=== PATIENT | male | born 1955 | race Caucasian/White ===

== ENCOUNTER 2023-02-21 12:13 | Inpatient (IN) | payer MEDICARE ==
[2023-02-21 12:54] LABS: #Neutrophils 8.1 thou/uL (1.40-6.50); %Basophils 0.4 % (0.0-1.0); %Eosinophils 0.3 % (0.0-10.0); %Lymphocytes 16.8 % (21.0-51.0); %Monocytes 8.6 % (0.0-10.0); %Neutrophils 72.6 % (42.0-75.0); Hematocrit 35.6 % (42.0-52.0); Mean Corpuscular HGB CONC 36.5 g/dL (32.0-36.0); Mean Corpuscular Hemoglobin 33.9 pg (27.0-31.0); Mean Corpuscular Volume 92.7 fl (78.0-98.0); Mean Platelet Volume 9.9 fL (7.4-10.4); Platelet Count 566 10x3/uL (130-400); RBC Distribution Width 12.4 % (11.5-14.5); Red Blood Cell (RBC) Count 3.84 mill/uL (4.70-6.10); White Blood Cell (WBC) Count 11.1 10x3/uL (4.8-10.8)
[2023-02-21] MEDS ORDERED: Sodium Chloride 0.9% 100 ML ONE (13:24)
[2023-02-21] MEDS ORDERED: cefTRIAXone (ROCEPHIN) 1 GM VIAL ONE (13:24)
[2023-02-21 13:47] LABS: ALT (SGPT) 72 U/L (8-55); AST (SGOT) 153 U/L (5-34); Albumin 3.4 g/dL (3.4-4.8); Alkaline Phosphatase 146 U/L (40-110); Anion Gap 22 mmol/L (10-20); BUN (Urea Nitrogen) 13 mg/dL (8.4-25.7); Bilirubin, Total 8.1 mg/dL (0.2-1.2); Calc. Creatinine Clearance 0 mL/min (70-130); Calcium 8.4 mg/dL (7.8-10.44); Carbon Dioxide 33 mmol/L (23-31); Chloride 80 mmol/L (98-107); Estimated GFR 98; Globulin 3.7 g/dL (2.4-3.5); Glucose 125 mg/dL (80-115); Potassium 3.3 mmol/L (3.5-5.1); Protein, Total 7.1 g/dL (5.8-8.1); Sodium 132 mmol/L (136-145)
[2023-02-21] MEDS ORDERED: Iopamidol-370 76% 500 ML MDV (1 ML CHARGE) ONE (14:06)
[2023-02-21] MEDS ORDERED: Multivitamins, Adult 10 ML, Thiamine HCl 100 MG, Folic Acid 1 MG in Dextrose 5 %-0.45 %... IV SCH (16:15)
[2023-02-21] MEDS ORDERED: Thiamine HCl 200 MG/2 ML VIAL SLOW IVP SCH (16:15)
[2023-02-21] MEDS ORDERED: Folic Acid 1 MG, Multivitamins, Adult 10 ML in Dextrose 5 %-0.45 % NaCl 1,000 ML IV SCH (16:15)
[2023-02-21] MEDS ORDERED: Lorazepam 2 MG/ML VIAL IM PRN (16:29)
[2023-02-21] MEDS ORDERED: Lorazepam 1 MG TAB PO PRN (16:29)
[2023-02-21] MEDS ORDERED: Pantoprazole 40 MG VIAL IVP SCH (16:30)
[2023-02-21] MEDS ORDERED: Electrolyte Replacement Protocol 1 EACH FS SCH (16:30)
[2023-02-21] MEDS ORDERED: Ondansetron PF 4 MG/2 ML Vial IVP PRN (16:31)
[2023-02-21 16:39] LABS: Lactic Acid 2.4 mmol/L (0.5-2.2)
[2023-02-21] MEDS ORDERED: Potassium Bicarbonate/Cit Ac 20 MEQ TAB PO SCH (16:45)
[2023-02-21] MEDS ORDERED: Morphine 2 MG/ML VIAL ONE (16:54)
[2023-02-21] MEDS ORDERED: Ondansetron PF 4 MG/2 ML Vial ONE (16:54)
[2023-02-21 17:05] LABS: INR-International Normal Ratio 1.1; Prothrombin Time 14.8 sec (12.0-14.7)
[2023-02-21 17:11] LABS: Bilirubin Large (Negative); Blood, Urine Negative (Negative); Glucose, Urine (Dipstick) Negative (Negative); Ketone, Urine Negative (Negative); Leukocyte Negative (Negative); Nitrite Positive (Negative); Protein, Urine (Dipstick) 30 mg/dL (Neg-Trace); Urobilinogen > or = 8.0 mg/dL (Less than 2); pH, Urine 7.5 (5.0-9.0)
[2023-02-21 17:21] LABS: Clarity Clear (Clear); Specific Gravity, Urine Greater than 1.060 (1.002-1.036)
[2023-02-21 17:22] LABS: CAUTI Indications for Culture Alt mental st,lethar; RBC/HPF None Seen HPF (0-3); Squamous Epithelial 0-3 HPF (0-3); WBC/HPF 0-3 HPF (0-3)
[2023-02-21 17:23] LABS: Bacteria/HPF Rare-Few HPF (None Seen)
[2023-02-21 17:24] LABS: Urine Culture Reflex No No
[2023-02-21] MEDS: Sodium Chloride 0.9% 1,000 ML IV SCH (19:16)
[2023-02-21 20:18] VITALS: BMI 23.3
[2023-02-21] MEDS: Morphine 2 MG/ML VIAL SLOW IVP PRN (20:32)
[2023-02-22] MEDS: Sodium Chloride 0.9% 1,000 ML IV SCH ×3 (04:20→19:25)
[2023-02-22] MEDS: Morphine 2 MG/ML VIAL SLOW IVP PRN ×5 (05:19→23:57)
[2023-02-22 07:03] LABS: INR-International Normal Ratio 1.2; Prothrombin Time 15.2 sec (12.0-14.7)
[2023-02-22 07:27] LABS: ALT (SGPT) 47 U/L (8-55); AST (SGOT) 106 U/L (5-34); Albumin 2.9 g/dL (3.4-4.8); Alkaline Phosphatase 109 U/L (40-110); Anion Gap 11 mmol/L (10-20); BUN (Urea Nitrogen) 11 mg/dL (8.4-25.7); Bilirubin, Total 5.7 mg/dL (0.2-1.2); Calc. Creatinine Clearance 133 mL/min (70-130); Calcium 7.8 mg/dL (7.8-10.44); Carbon Dioxide 36 mmol/L (23-31); Chloride 88 mmol/L (98-107); Estimated GFR 104; Glucose 109 mg/dL (80-115); Protein, Total 5.9 g/dL (5.8-8.1); Sodium 132 mmol/L (136-145)
[2023-02-22 07:33] LABS: Potassium 2.5 mmol/L (3.5-5.1)
[2023-02-22 07:48] LABS: #Eosinphils 0.1 thou/uL (0.0-0.7); #Monocytes 0.7 thou/uL (0.11-0.59); #Neutrophils 5.4 thou/uL (1.40-6.50); %Basophils 0.5 % (0.0-1.0); %Eosinophils 0.7 % (0.0-10.0); %Lymphocytes 20.6 % (21.0-51.0); %Monocytes 8.3 % (0.0-10.0); %Neutrophils 65.5 % (42.0-75.0); Mean Corpuscular HGB CONC 34.8 g/dL (32.0-36.0); Mean Corpuscular Hemoglobin 33.2 pg (27.0-31.0); Mean Corpuscular Volume 95.4 fl (78.0-98.0); Mean Platelet Volume 9.4 fL (7.4-10.4); RBC Distribution Width 12.5 % (11.5-14.5); Red Blood Cell (RBC) Count 2.83 mill/uL (4.70-6.10); White Blood Cell (WBC) Count 8.3 10x3/uL (4.8-10.8)
[2023-02-22] MEDS: Folic Acid 1 MG TAB PO SCH (08:08)
[2023-02-22] MEDS: Thiamine HCl 200 MG/2 ML VIAL SLOW IVP SCH (08:08)
[2023-02-22] MEDS: Multivit, Therapeutic 1 TAB PO SCH (08:08)
[2023-02-22] MEDS: Pantoprazole 40 MG VIAL IVP SCH (08:09)
[2023-02-22 08:10] LABS: Hemoglobin 9.4 g/dL (14.0-18.0)
[2023-02-22 08:11] LABS: Platelet Count 418 10x3/uL (130-400)
[2023-02-22] MEDS ORDERED: Potassium Chloride 20 MEQ TAB PO SCH (08:15)
[2023-02-22] MEDS ORDERED: Magnesium 2 GM/50 ML(in water) 2 GM in Premix 1 BAG IVPB SCH (08:15)
[2023-02-22] MEDS: Ondansetron ODT 4 MG TAB PO PRN ×2 (08:35→19:16)
[2023-02-22] MEDS: Potassium Chloride 20 MEQ in Premix 1 BAG IVPB SCH ×4 (09:20→15:02)
[2023-02-22 16:40] LABS: Anion Gap 13 mmol/L (10-20); BUN (Urea Nitrogen) 10 mg/dL (8.4-25.7); Calc. Creatinine Clearance 120 mL/min (70-130); Calcium 7.6 mg/dL (7.8-10.44); Carbon Dioxide 29 mmol/L (23-31); Chloride 94 mmol/L (98-107); Estimated GFR 101; Glucose 93 mg/dL (80-115); Magnesium 1.7 mg/dL (1.6-2.6); Potassium 4.2 mmol/L (3.5-5.1); Sodium 132 mmol/L (136-145)
[2023-02-23] MEDS: Sodium Chloride 0.9% 1,000 ML IV SCH ×2 (05:32→18:39)
[2023-02-23] MEDS: Morphine 2 MG/ML VIAL SLOW IVP PRN ×4 (05:32→21:05)
[2023-02-23] MEDS: Lorazepam 1 MG TAB PO PRN ×4 (05:47→21:05)
[2023-02-23] MEDS ORDERED: Magnesium 2 GM/50 ML(in water) 2 GM in Premix 1 BAG IVPB SCH (08:00)
[2023-02-23] MEDS: Folic Acid 1 MG TAB PO SCH (08:24)
[2023-02-23] MEDS: Pantoprazole 40 MG VIAL IVP SCH (08:24)
[2023-02-23] MEDS: Multivit, Therapeutic 1 TAB PO SCH (08:24)
[2023-02-23] MEDS: Thiamine HCl 200 MG/2 ML VIAL SLOW IVP SCH (08:24)
[2023-02-23 09:42] LABS: Anion Gap 9 mmol/L (10-20); BUN (Urea Nitrogen) 9 mg/dL (8.4-25.7); Calc. Creatinine Clearance 123 mL/min (70-130); Carbon Dioxide 27 mmol/L (23-31); Chloride 102 mmol/L (98-107); Magnesium 1.9 mg/dL (1.6-2.6); Potassium 3.8 mmol/L (3.5-5.1); Sodium 134 mmol/L (136-145)
[2023-02-23 09:43] LABS: ALT (SGPT) 42 U/L (8-55); AST (SGOT) 103 U/L (5-34); Albumin 2.7 g/dL (3.4-4.8); Alkaline Phosphatase 102 U/L (40-110); Bilirubin, Total 3.2 mg/dL (0.2-1.2); Estimated GFR 102; Glucose 84 mg/dL (80-115); Protein, Total 5.7 g/dL (5.8-8.1)
[2023-02-24] MEDS: Morphine 2 MG/ML VIAL SLOW IVP PRN ×5 (02:03→23:55)
[2023-02-24] MEDS: Sodium Chloride 0.9% 1,000 ML IV SCH ×3 (03:45→23:54)
[2023-02-24 04:57] LABS: Hematocrit 27.1 % (42.0-52.0); Hemoglobin 8.9 g/dL (14.0-18.0); Mean Corpuscular HGB CONC 32.8 g/dL (32.0-36.0); Mean Corpuscular Hemoglobin 32.8 pg (27.0-31.0); Mean Platelet Volume 9.6 fL (7.4-10.4); Platelet Count 511 10x3/uL (130-400); RBC Distribution Width 13.3 % (11.5-14.5); Red Blood Cell (RBC) Count 2.71 mill/uL (4.70-6.10); White Blood Cell (WBC) Count 11.2 10x3/uL (4.8-10.8)
[2023-02-24 05:04] LABS: Delete Auto Diff?? YES; Manual Diff?? YES
[2023-02-24 05:29] LABS: Anion Gap 9 mmol/L (10-20); BUN (Urea Nitrogen) 9 mg/dL (8.4-25.7); Calc. Creatinine Clearance 123 mL/min (70-130); Calcium 7.5 mg/dL (7.8-10.44); Carbon Dioxide 25 mmol/L (23-31); Chloride 105 mmol/L (98-107); Estimated GFR 102; Glucose 80 mg/dL (80-115); Magnesium 1.8 mg/dL (1.6-2.6); Potassium 3.8 mmol/L (3.5-5.1); Sodium 135 mmol/L (136-145)
[2023-02-24 05:48] LABS: Anisocytosis SLIGHT = 6-15 cells HPF (0-5); Band 11 % (5-11); CellaVision Operator ID LAB.CLH1; Eosinophils 2 % (0-10); Hypochromia SLIGHT = 6-15 cells HPF (0-5); Lymphocytes 9 % (21-51); Macrocytosis SLIGHT = 6-15 cells HPF (0-5); Metamyelocyte 8 % (0-0); Monocytes 6 % (0-10); Myelocyte 8 % (0-0); Neutrophil 54 % (42-75); Nucleated RBC (Manual Ct) 2 % (0); Platelet Adequacy Comment Platelets Increased; Polychromasia SLIGHT = 2-3 cells HPF (0-2); Promyelocytes 2 % (0-0); Reactive Lymphocytes 1 % (0-10); Stomatocytes SLIGHT = 2-5 cells HPF (0-1); Total Cell Count 101
[2023-02-24] MEDS: Lorazepam 1 MG TAB PO PRN ×2 (07:43→14:25)
[2023-02-24] MEDS ORDERED: Magnesium 2 GM/50 ML(in water) 2 GM in Premix 1 BAG IVPB SCH (08:00)
[2023-02-24] MEDS: Pantoprazole 40 MG VIAL IVP SCH (08:06)
[2023-02-24] MEDS: Multivit, Therapeutic 1 TAB PO SCH (08:06)
[2023-02-24] MEDS: Folic Acid 1 MG TAB PO SCH (08:06)
[2023-02-24] MEDS: Thiamine 100 MG TAB PO SCH (08:06)
[2023-02-24] MEDS: Lorazepam 0.5 MG TAB PO PRN ×2 (19:53→23:55)
[2023-02-25] MEDS: Lorazepam 0.5 MG TAB PO PRN ×5 (04:25→20:17)
[2023-02-25] MEDS: Morphine 2 MG/ML VIAL SLOW IVP PRN ×5 (04:25→20:17)
[2023-02-25] MEDS: Multivit, Therapeutic 1 TAB PO SCH (08:20)
[2023-02-25] MEDS: Thiamine 100 MG TAB PO SCH (08:20)
[2023-02-25] MEDS: Folic Acid 1 MG TAB PO SCH (08:20)
[2023-02-25] MEDS: Pantoprazole 40 MG VIAL IVP SCH (08:20)
[2023-02-25] MEDS: Sodium Chloride 0.9% 1,000 ML IV SCH ×2 (10:46→20:22)
[2023-02-26] MEDS: Morphine 2 MG/ML VIAL SLOW IVP PRN ×3 (00:01→08:52)
[2023-02-26] MEDS: Lorazepam 0.5 MG TAB PO PRN ×4 (00:02→22:39)
[2023-02-26] MEDS ORDERED: Melatonin 3 MG TAB PO PRN (00:20)
[2023-02-26] MEDS ORDERED: Electrolyte Replacement Protocol 1 EACH FS PRN (00:45)
[2023-02-26] MEDS: Multivit, Therapeutic 1 TAB PO SCH (08:53)
[2023-02-26] MEDS: Sodium Chloride 0.9% 1,000 ML IV SCH (08:53)
[2023-02-26] MEDS: Pantoprazole 40 MG VIAL IVP SCH (08:53)
[2023-02-26] MEDS: Thiamine 100 MG TAB PO SCH (08:53)
[2023-02-26] MEDS: Folic Acid 1 MG TAB PO SCH (08:53)
[2023-02-26] MEDS ORDERED: traMADol HCl 50 MG TAB PO PRN (09:36)
[2023-02-26] MEDS ORDERED: Ibuprofen 200 MG TAB PO SCH (12:45)
[2023-02-27] MEDS: Folic Acid 1 MG TAB PO SCH (08:15)
[2023-02-27] MEDS: Multivit, Therapeutic 1 TAB PO SCH (08:15)
[2023-02-27] MEDS: Ondansetron ODT 4 MG TAB PO PRN (08:23)
[2023-02-27] MEDS: Thiamine 100 MG TAB PO SCH (08:54)
[2023-02-27 12:14] VITALS: BP 127/69; TEMP 98.4
== END 2023-02-27 14:25 | DRG 434 ==
LOC: ERS 12:13 → T4-A 15:57
PROVIDERS: ADMIT Internal Medicine; ATTEND Internal Medicine
DX: K70.10 Alcoholic hepatitis without ascites (principal); K70.9 Alcoholic liver disease, unspecified; K29.20 Alcoholic gastritis without bleeding; F10.10 Alcohol abuse, uncomplicated; F17.290 Nicotine dependence, other tobacco product, uncomplicated; R41.82 Altered mental status, unspecified; R62.7 Adult failure to thrive; E87.6 Hypokalemia; D64.9 Anemia, unspecified; R53.81 Other malaise; R63.0 Anorexia; K59.00 Constipation, unspecified; Z68.23 Body mass index [BMI] 23.0-23.9, adult
CPT/HCPCS: 36415; 70450; 71045; 74177; 80048; 80053; 81001; 82140; 83605; 83735; 85025; 85610; 87040; 87086; 93005; 96361; 96365; 96367; 96375; C9113; J0696; J1650; J2272; J2405; J3411; J3475; J3480; J3490; J7042; J7050; Q0162; Q9967